=== PATIENT | female | born 1955 | race Caucasian/White ===

== ENCOUNTER → 2017-04-14 | Outpatient (CLI) | payer OTHER ==
[~2017-04-14] MED LIST: ACET-1311 PO; CLR/5 PO; DIVA500T59 PO; ERGO500037 PO; FOLI1TAB8 PO; FSMD/70 PO; IBUP-1121 PO; LEVO75TA5 PO; PHN/100 PO; ZNTT/150 PO
--- NOTE | 2017-04-14 13:52 | DIAGNOSTIC IMAGING REPORT ---
R FOOT MIN 3 VIEWS ROUTINE CLINICAL HISTORY: Right foot pain COMPARISON: None. DISCUSSION: The bones are osteopenic. No acute fractures or dislocations are visualized. There is an old healed fracture of the proximal phalanx of the third toe. There are no erosive or destructive changes. IMPRESSION: 1. Osteopenia 2. No acute fractures Electronically signed by: Musa Rowe M.D. 04/14/2017 1:51 PM Dictated Date/Time: 04/14/2017 1:50 PM
--- NOTE | 2017-04-14 13:53 | DIAGNOSTIC IMAGING REPORT ---
R ANKLE MIN 3 VIEWS ROUTINE HISTORY: 61 years-old Female ANKLE acute right foot and ankle pain without reported trauma COMPARISON: Right foot radiographs of same day TECHNIQUE: 4 views of the right ankle FINDINGS: Bones appear mildly demineralized. Exam is limited secondary to positioning. Small Achilles plantar enthesophyte. No acute fracture or dislocation identified. No osteochondral defect. Mild soft tissue swelling about the ankle, greatest anterolaterally. IMPRESSION: 1. Mild soft tissue swelling without acute bony abnormality. 2. Osteopenic appearance of the bones with mild degenerative changes as above. The above report was generated using voice recognition software. It may contain grammatical, syntax or spelling errors. Electronically signed by: Luis Fernando Sheridan M.D. 04/14/2017 1:52 PM Dictated Date/Time: 04/14/2017 1:50 PM
== END | disposition home or self-care (01) ==
LOC: C.RAD 12:44
PROVIDERS: ATTEND Neurological Surgery
DX: M79.661 Pain in right lower leg (principal); M89.271 Other disorders of bone development and growth, right ankle and foot; C79.31 Secondary malignant neoplasm of brain